=== PATIENT | female | born 1965 | race Caucasian/White ===

== ENCOUNTER → 2021-03-23 | Outpatient (CLI) | payer MEDICARE, OTHER ==
[~2021-03-23] MED LIST: ADIPEX-P37.5 M1 PO; ESTRADIOL1 MG PO; IBUPROFEN200 MG PO; LASIX 40 MG TAB40 MG PO; LIPITOR10 MG PO; OMEPRAZOLE20 M1 PO; POTASSIUM CHLO20 ME1 PO; VITAMIN D3125 MCG PO
[2021-03-23 11:21] LABS: HEMOGLOBIN 12.8 gm/dl (12.3-15.3); RED BLOOD COUNT 4.34 M/UL (4.00-5.10); WHITE BLOOD COUNT 7.1 K/UL (4.5-11.0)
[2021-03-23 11:41] LABS: BUN/CREATININE RATIO 24 (0-10)
== END ==
LOC: OPSV2 10:00 → EDSTATUS 10:00 → OPSV2 10:05
PROVIDERS: Anesthesiology
DX: Z01.812 Encounter for preprocedural laboratory examination (principal)
CPT/HCPCS: 36415; 80048; 85025

== ENCOUNTER → 2021-04-04 | Outpatient (CLI) | payer MEDICARE, OTHER ==
[~2021-04-04] MED LIST changes: +HYDROCODON-ACE1 EAC6 PO; +VAZALORE325 MG PO
[2021-04-04 11:44] LABS: BUN/CREATININE RATIO 21 (0-10)
== END ==
LOC: LAB 10:46
PROVIDERS: Orthopaedic Surgery
DX: Z01.812 Encounter for preprocedural laboratory examination (principal)
CPT/HCPCS: 36415; 80048; 86850; 86900; 86901

== ENCOUNTER 2021-04-05 06:34 | Day surgery (SDC) | payer MEDICARE, OTHER ==
[~2021-04-05] VITALS: Ht 149.9 cm; Wt 102.5 kg
[~2021-04-05 06:34] MED LIST changes: -ADIPEX-P37.5 M1 PO; -HYDROCODON-ACE1 EAC6 PO; -VAZALORE325 MG PO; -VITAMIN D3125 MCG PO
[2021-04-05] MEDS ORDERED: VITAMIN D3125 MCG PO (11:36)
[2021-04-05] MEDS ORDERED: ADIPEX-P37.5 M1 PO (11:37)
[2021-04-06] MEDS ORDERED: HYDROCODON-ACE1 EAC6 PO (07:29)
[2021-04-06] MEDS ORDERED: VAZALORE325 MG PO (07:29)
== END 2021-04-06 13:26 | disposition home or self-care (01) ==
LOC: OR 06:34 → EDSTATUS 07:30 → M/S 14:48 → OR 04-06 13:26
DX: M17.0 Bilateral primary osteoarthritis of knee (principal); M79.4 Hypertrophy of (infrapatellar) fat pad; M89.38 Hypertrophy of bone, other site; K21.9 Gastro-esophageal reflux disease without esophagitis; E66.9 Obesity, unspecified; Z20.822 Contact with and (suspected) exposure to COVID-19; Z86.16 Personal history of COVID-19; Z90.79 Acquired absence of other genital organ(s); Z90.710 Acquired absence of both cervix and uterus; Z88.5 Allergy status to narcotic agent
CPT/HCPCS: 73560; 76000; 97110; 97110-GP-CQ; 97116-GP-CQ; 97162; 97166; 97535; C1776; J0171; J0690; J1100; J1170; J1200; J1885; J2250; J2405; J2704; J2795; J3010; J3475; J7030; J7120

== ENCOUNTER → 2021-09-01 | Outpatient (CLI) | payer MEDICARE, OTHER ==
[~2021-09-01] MED LIST changes: +ADIPEX-P37.5 M1 PO; +HYDROCODON-ACE1 EAC6 PO; +NEXIUM20 MG PO; +VAZALORE325 MG PO; +VITAMIN D3125 MCG PO
[2021-09-01 13:22] LABS: HEMOGLOBIN 12.8 gm/dl (12.3-15.3); RED BLOOD COUNT 4.44 M/UL (4.00-5.10); WHITE BLOOD COUNT 6.4 K/UL (4.5-11.0)
[2021-09-01 13:43] LABS: BUN/CREATININE RATIO 26 (0-10)
== END ==
LOC: OPSV2 12:30 → EDSTATUS 12:30 → OPSV2 12:40
PROVIDERS: Orthopaedic Surgery
DX: Z01.818 Encounter for other preprocedural examination (principal); M17.12 Unilateral primary osteoarthritis, left knee
CPT/HCPCS: 36415; 80048; 85025; 93005

== ENCOUNTER → 2021-09-12 | Outpatient (CLI) | payer MEDICARE, OTHER ==
[~2021-09-12] MED LIST changes: +ASPIR-TRIN325 MG PO
[2021-09-12 15:50] LABS: BUN/CREATININE RATIO 30 (0-10)
== END ==
LOC: LAB 14:13
PROVIDERS: Orthopaedic Surgery
DX: Z01.812 Encounter for preprocedural laboratory examination (principal)
CPT/HCPCS: 36415; 80048; 86850; 86900; 86901

== ENCOUNTER 2021-09-13 08:31 | Day surgery (SDC) | payer MEDICARE, OTHER ==
[~2021-09-13] VITALS: Ht 152.4 cm; Wt 77.1 kg
[~2021-09-13 08:31] MED LIST changes: -ASPIR-TRIN325 MG PO
[2021-09-14] MEDS ORDERED: ASPIR-TRIN325 MG PO (07:45)
[2021-09-14] MEDS ORDERED: HYDROCODON-ACE1 EAC6 PO (07:45)
== END 2021-09-14 14:25 | disposition home or self-care (01) ==
LOC: CCU 08:31 → OR 08:31 → CCU 15:16 → OR 09-14 14:25
DX: M17.12 Unilateral primary osteoarthritis, left knee (principal); K21.9 Gastro-esophageal reflux disease without esophagitis; Z86.16 Personal history of COVID-19; Z88.5 Allergy status to narcotic agent
CPT/HCPCS: 73560; 76000; 97116; 97161; 97165; 97530; 97535; C1713; C1776; J0690; J1100; J1170; J1200; J1885; J2001; J2250; J2704; J2710; J2795; J3010; J3475

== ENCOUNTER → 2021-10-07 13:07 | Emergency (ER) | payer MEDICARE, OTHER ==
[~2021-10-07 13:07] MED LIST changes: +ASPIR-TRIN325 MG PO
== END | disposition home or self-care (01) ==
LOC: ER1 13:07
DX: G89.18 Other acute postprocedural pain (principal); M25.562 Pain in left knee
CPT/HCPCS: 73560; 93971; 99284